=== PATIENT | male | born 1960 | race African-American/Black ===

== ENCOUNTER 2017-02-17 09:39 | Emergency (ER) | payer SELFPAY ==
[~2017-02-17] VITALS: Ht 175.3 cm; Wt 75.0 kg
[2017-02-17 09:57] VITALS: BP 95/52
== END 2017-02-17 16:04 | disposition home or self-care (01) ==
LOC: ER 16:01
DX: Z76.0 Encounter for issue of repeat prescription (principal); B35.9 Dermatophytosis, unspecified; G62.9 Polyneuropathy, unspecified; Z20.6 Contact with and (suspected) exposure to human immunodeficiency virus [HIV]
CPT/HCPCS: 99283